=== PATIENT | female | born 1985 ===

== ENCOUNTER 2019-03-03 23:13 | Emergency (ER) | payer MEDICAID, OTHER ==
--- NOTE | 2019-03-03 23:13 | EDPHY ---
H & P Time Seen by Provider: 03/03/19 23:15 HPI/ROS: Chief Complaint: Delusions HPI: 33-year-old female brought in by EMS due to delusions and hallucinations from long-term. 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 They called the police who then called 911 and had her transported here after she was being released from long-term and she refused to leave long-term. Upon attempting to obtain further history from the patient she became very tangential with pressured speech and insisted that we were not the [place] agents that we told her that we were although he never told her that. The patient did deny any medical complaints. She also denied any history of bipolar disorder or depression in the past but then later recanted and said that she did actually have some psychiatric history but refused to talk about it. She presents gravely disabled with a severe exacerbation of psychiatric illness PMH:denies any PMH Social History: unobtainable due to refusing to cooperate and severe daniel: ROS: Neuro: No headache Constitutional: No Fever, No dizziness ENT: No runny nose, No sore throat Cardiac: No Chest Pain Pulmonary: No Shortness of Breath GI: No abdominal Pain Skin: No rash Heme: No easy bruising : No urinary problems Eyes: No vision problems Musculoskeletal: No neck pain, No back pain Complete Review of systems negative except as noted above Physical Exam: General: Alert in severe distress from anxiety Eyes: no icterus or pallor ENT: Mouth: Mucus membranes dry Neck: supple, no lymph nodes, no vertebral tenderness, no meningeal signs Lungs CTA bilaterally, no respiratory distress Cardiac: Normal pulses, tachycardic, normal rhythm, normal heart sounds GI: Abd Soft, non tender, no distention Back: Normal inspection, nml ROM, No CVAT, no vertebral tenderness Extremities: No swelling, nml ROM Skin: Warm, pink and dry, no rash, normal turgor Neuro: A&Ox3, MAEE, Nml Speech Psych: Pressured speech, delusional, tangential Reevaluations, MDM, and data interpretation Data Interpretation Labs reviewed and no acute medical disorder found. ED Course Initial Eval: Pt greeted and advised about plan for care. She was escalating and desipte calming efforts by me and the staff, she continued to escalate to the point that I was concerned for hers and the staffs' safety so I opted to sedate her with haldol and Ativan. Labs reviewed and no sign of acute intoxicants or electrolyte d/o Reevaluation On re-evaluation after being given Haldol the patient is calm sleeping peacefully. She is easily arousable and calm and cooperative though still refusing to answer many questions. At this point she admits to psychiatric disease but will not specify. Medical Decision Making Differential Diagnosis and MDM: 33 Year old female with acute delusions and paranoia along with pressured speech. Differential diagnosis includes meth intoxication, cocaine intoxication, schizophrenia, bipolar disorder. The patient is gravely disabled presenting as a harm to herself. Will check electrolytes along with Tox screen to evaluate for potential causes of her symptoms. However if this is negative will need psych consult for further evaluation and assistance with disposition. (Elvis oTlliver) Constitutional: Initial Vital Signs Temperature (C) 36.7 C 03/03/19 23:15 Heart Rate 80 03/03/19 23:15 Respiratory Rate 16 03/03/19 23:15 Blood Pressure 110/71 03/03/19 23:15 O2 Sat (%) 98 03/03/19 23:15 O2 Delivery Mode Room Air Allergies/Adverse Reactions: No Known Allergies Allergy (Unverified 03/04/19 07:30) Home Medications: Medication Instructions Recorded NK [No Known Home Meds] 03/04/19 Medical Decision Making Other Provider: Care assumed at 6:45 a.m. For this 33-year-old patient who came in screaming agitated and delusional who was given haloperidol on Ativan. Plan for serial exam, urine toxicology, psychiatric evaluation. No previous visits in the computer system to this facility. 815: Urine toxicology negative, patient admits to previous psychiatric illness diagnosis, mental health evaluation requested at this time. 1416: Signed out to Dr. Beckett with psychiatric evaluation completed, inpatient hospitalization pending. (Jordan Gomes) 1828: Patient has been accepted to the [facility]; EMTALA signed. (Fareed Beckett) - Data Points Laboratory Results: Laboratory Results 03/04/19 03:30 03/04/19 03:30 Medications Given: Discontinued Medications Haloperidol Lactate (Haldol Injection) 5 mg IM EDNOW ONE Stop: 03/03/19 23:18 Last Admin: 03/03/19 23:30 Dose: 5 mg Haloperidol Lactate (Haldol Injection) 5 mg IM EDNOW ONE Stop: 03/04/19 18:55 Last Admin: 03/04/19 19:03 Dose: 5 mg Lorazepam (Ativan Injection) 1 mg IVP EDNOW ONE Stop: 03/03/19 23:18 Last Admin: 03/03/19 23:30 Dose: 1 mg Lorazepam (Ativan Injection) 1 mg IM EDNOW ONE Stop: 03/04/19 18:54 Last Admin: 03/04/19 19:03 Dose: 1 mg Departure - Departure Disposition: Other Psych, Not [facility] Clinical Impression: Acute psychosis Condition: Fair Referrals: [facility],. [Clinic] - As per Instructions
[2019-03-03] MEDS ORDERED: HALOPERIDOL LACT 5 MG/ML INJ IM ONE (23:17)
[2019-03-03] MEDS ORDERED: LORazepam 2 MG/ML INJ IVP ONE (23:17)
[2019-03-04 03:40] LABS: PLATELET COUNT 259 10^3/uL (150-400)
--- NOTE | 2019-03-04 11:43 | ASMTTLCEVL ---
TLC Evaluation - Basic Information Evaluation Start Date and 03/04/2019 09:20 AM Time Hospital Status Answers: M1 Hold 72-hr M1 Hold Start Date 03/03/2019 10:10 AM and Time Patient statement Notes: You woke me up Im not answering any further questions. Narrative Notes: Pt is a 33 yo, single, unemployed, female with reported history of depression, brought to [facility] ED by [facility] officer on M1 hold which noted: [facility] due to presenting with confusion, disorganized, pressured speech, ideas of persecution, paranoia, tangential, perseverating on identity theft and unwillingness to cooperate. Deputies have been attempting to release respondent, but she refuses to cooperate and is not oriented to her situation. Respondent is gravely disabled and requires higher level of care in which to stabilize. Per ED report, pt brought via EMS due to delusions and hallucinations from [facility]pc. She was screaming and belligerent when she showed up to a [employer] club demanding payment though she never worked at the [employer]. They called police who then had pt transported to [facility] after being released from [facility]pc on a trespassing charge. Upon attempting to obtain further history from the patient, she became very tangential with pressured speech and insisted that we were not the [place] agents that we told her that we were although we never told her that. She denied any history of bipolar illness or depression in the past but then later recanted and said that she did actually have some psychiatric history but refused to talk about it. Pt was administered Haldol 5 mg IM and Ativan 1 mg IM at 2330 hrs. Upon medical clearance, MH evaluation was conducted. Pt appeared somewhat sleepy. She did not appear to be fully cooperative with the interview process, answering as briefly as she could. She appeared guarded and irritable. She did not appear to be a reliable historian as evidenced by giving invalid phone number to parents of [phone]. BAL was zero upon arrival and UDS results were negative for all tested substances. Pt denied current suicidal ideation/intent/plans. Diagnosis History Notes: Pt reported prior history of depression. Prior suicide attempts Notes: Pt reported having made a serious longitudinal cut to her left wrist in a suicide attempt at age 29 which required several stitches. She has a scar on her left wrist of approximately 5-6 inches in length. Prior hospitalizations Notes: Pt reported one previous psychiatric hospitalization following the above suicide attempt at a hospital in [place], [place] at age 29. Treatment Responses Notes: N/A. History of violence Notes: Pt denied any history of violence or aggression, however, outside collateral unavailable and pt does not appear to be a fully cooperative or reliable historian and appeared labile and irritable at times in the ED. Pt presently denying any homicidal ideation. Therapist: None. Psychiatrist: None. Medications (name, dosage, route, freq uency) Notes: None. Allergies/Reaction Notes: NKDA. Sleep Notes: Pt reported sleeping fine when staying at her parents residence in [place], [place]. Appetite Notes: WNL. Medical/Surgical history Notes: Pt stated, nothing to share. Denied any surgical history. Substance use history (frequency, intensity, his tory, duration) Notes: Pt was uncooperative in providing detailed history of substance use. She reported I dont remember when asked when she first tried alcohol or marijuana. She reported last consuming a beer about a month ago. She reported she rarely uses marijuana but cannot recall when her last use was. She otherwise denied any history of use of any other illicit substances. BAL was zero. UDS results were negative for all tested substances. Family composition Notes: Pt reported that her parents remain and reside in [place], [place]. Father is Too and mother is Valentino Garnett. She reported having a brother that didnt survive infancy and two sisters, named Wendy, age 35 and Marleni age 32. Need for family Answers: No participation in patient's care Family psychiatric/substance abuse history Notes: Pt stated, Nope. Developmental history Notes: Pt reported she was born and grew up in [place], [place]. She denied any childhood history of TBIs, LOC or concussions. She denied any childhood experiences of physical, emotional or sexual abuse/trauma. She endorsed having achieved normal childhood developmental milestones and denied any learning difficulties such as ADHD/ADD. Abuse concerns Answers: None Marital status/children Notes: Single, never , no dependents. Living situation Notes: Pt reported that she has been staying with her parents in [place], [place] since early 2017. Sexual history/orientation Notes: Active. Heterosexual. Peer support/family strengths Notes: Pt stated I was trying to do everything on my own. Education level/history Notes: Pt reported obtaining a bachelors degree from in 2009 in Studio Art and another degree in 2011 in Art History from . 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 When pt then refused to leave, 911 was called. Notes: None. Legal Notes: Pt was arrested yesterday for trespassing, spend less than 24 hours in [facility]pc and was to be released but was instead placed on M1 hold and brought to [facility] ED. Other arrest history unknown, as pt uncooperative in providing further details. Jew/Spiritual Notes: None reported which might impact treatment. Leisure Notes: None reported by pt. Collateral Notes: None available as pt did not provide valid ph number to parents. Patient's strengths Answers: Athletic (Please select at least TWO strengths): Intelligent TLC Evaluation - Mental Status Exam Appearance: Answers: Unclean Unkempt Eye Contact: Answers: Avoiding Intermittent Mood: Answers: Irritable Labile Affect: Answers: Congruent w/ Mood Distracted Expansive Guarded Indifferent Irritable Labile Suspicious Behavior: Answers: Uncooperative Erratic Guarded Manipulative Passive Suspicious Speech: Answers: Illogical Coherent Circumstantial Grandiose Loose Associations Selectively Mute Thought Process: Answers: Disorganized Oriented Circumstantial Loose Associations Paranoid Tangential Insight: Answers: Poor Judgement: Answers: Poor Manic Signs/Symptoms Answers: Grandiosity Impulsivity Irritability Mood Swings Depression Answers: Difficulty Concentrating Signs/Symptoms: Diminished Pleasure Psychomotor Agitation Hallucinations: Answers: None Delusions: Answers: Grandiose Ideas of Reference Persecution Current Stage of Change Answers: Precontemplation Pt reported to have Answers: No suicidal/self-injuring ideation/behavior? Pt reported to be making Answers: No suicidal/self-injuring threats? Pt reported to have Answers: No aggression/assault ideation/behavior? Pt reported to be making Answers: No aggression/assault threats? Ideation/behavior is Answers: No chronic? Patient has a specific Answers: No plan? Pt has access to means to Answers: No execute the plan? Ideation involves Answers: No serious/lethal intent? Ideation has Answers: Yes delusional/hallucinatory content? History of Answers: Yes suicidal/self-injuring ideation, behavior, or threats? History of Answers: No aggressive/assaultive ideation, behavior, or threats? History of serious Answers: No physical harm to self/others while in treatment setting? TLC Evaluation - Suicide/Homicide Risk Suicide Risk Factors: Answers: Agitation Bipolar Disorder Cluster "B" D/O or Traits Impulsivity Inadequate Social Support Lack of Jew Support Lack of Social Support Lack/Loss of Employment Legal Difficulties Prior Suicide Attempt(s) Psychotic Disorder Single Unstable Living Situation Homicide/violence risk Answers: Cluster "B" D/O or Traits factors: Current Suicidal Answers: No Ideation? Current Suicidal Ideation Answers: No in the Past 48 Hours? Current Suicidal Ideation Answers: No in the Past Month? Current Suicidal Answers: No Ideation, Worst Ever? Suicide Internal Answers: Antonietta with Stress Protective Factors: Suicide External Answers: None Protective Factors: Ranking of patient's Answers: Low suicidal risk: Ranking of patient's Answers: Low homicidal risk: TLC Evaluation - Wrap-up AXIS I Diagnosis (include DSM-V and ICD-10 codes), must also be entered in [employer], which is the source of truth. Notes: Bipolar I Disorder, with Psychotic Features 296.44 (F31.2) In consultation with [facility] ED physician, Jordan Gomes MD, Dr. Gomes concurred that pt appears to meet 27-65 criteria requiring psychiatric hospitalization as pt appears to be gravely disabled due to a mental illness condition. Pt was read the Patient Rights and Responsibilities Statement on 03/04/2019 at 1000 hrs, original placed on chart, and was given photocopy of Rights. Pt refused to sign the Patient Rights. Evaluation End Date and 03/04/2019 11:00 AM Time (HH:PAT): Date Signed: 03/04/2019 11:42 AM Electronically Signed By:Sabino Santana
--- NOTE | 2019-03-04 17:58 | ASMTLCPROG ---
Notes Note: Notes: Spoke with Delia at [facility] who accepted pt but need us to obtain a pre-auth first. This teletypewriter operator faxed clinicals to obtain medicaid auth. Date Signed: 03/04/2019 04:00 PM Electronically Signed By:Roselia Greene
[2019-03-04] MEDS ORDERED: LORazepam 2 MG/ML INJ IM ONE (18:53)
--- NOTE | 2019-03-04 18:53 | ASMTLCPROG ---
Notes Note: Notes: Followed up on placement. Delia at [facility] left message for call back. Delia wanted to know if we were able to obtain collateral during the evaluation. This sign writer hand informed Delia according to TLC eval, no collateral was obtained. We are still looking for placement at this time. Date Signed: 03/04/2019 03:31 PM Electronically Signed By:Roselia Greene
[2019-03-04] MEDS ORDERED: HALOPERIDOL LACT 5 MG/ML INJ IM ONE (18:54)
[2019-03-04 20:09] VITALS: BP 112/71
== END 2019-03-04 20:04 ==
LOC: EEVIPCON 23:13 → EDBD 23:13
DX: F23 Brief psychotic disorder (principal)
CPT/HCPCS: 80305; 96374; G0480; J1630; J2060